=== PATIENT | male | born 1970 | race Caucasian/White ===

== ENCOUNTER 2019-11-03 13:51 | Inpatient (IN) ==
[2019-11-03 15:51] LABS: Hematocrit 26 % (42-52); Hemoglobin 8.6 g/dL (14.0-18.0); Mean Corpuscular HGB Conc 33 g/dL (31-36); Mean Corpuscular Hemoglobin 28 pg (27-31); Mean Corpuscular Volume 85 fL (80-94); Mean Platelet Volume 6.6 fL (7.4-10.4); Platelet Count 680 10^3/uL (150-450); Red Blood Count 3.12 10^6 /uL (4.18-5.48); Red Cell Distribution Width 15 % (10-15); White Blood Count 11.3 10^3/uL (3.5-10.8)
[2019-11-03 16:11] LABS: ABS Basophils 0.1 10^3/ul (0-0.2); ABS Eosinophils 0.3 10^3/ul (0-0.6); ABS Lymphocytes 2.1 10^3/ul (1.0-4.8); ABS Monocytes 1.2 10^3/ul (0-0.8); Eosinophil % 2.4 %; Lymphocyte % 18.9 %; Nucleated Red Blood Cells % 0.2
[2019-11-03 16:33] LABS: Polychromasia 1+
[2019-11-03 16:40] LABS: ALT 13 U/L (7-52); Albumin 2.4 g/dL (3.2-5.2); Albumin/Globulin Ratio 0.7 (1-3); Alkaline Phosphatase 88 U/L (34-104); BUN/Creatinine Ratio 15.6 (8-20); Blood Urea Nitrogen 10 mg/dL (6-24); C Reactive Protein 28.84 mg/L (<8.01); CO2 Carbon Dioxide 26 mmol/L (22-32); Calcium 8.4 mg/dL (8.6-10.3); Chloride 102 mmol/L (101-111); EGFR African American 160.2 (>60); EGFR Non-African American 132.4 (>60); Globulin 3.6 g/dL (2-4); Glucose 98 mg/dL (70-100); Sodium 135 mmol/L (135-145)
[2019-11-03] MEDS ORDERED: Iohexol 300 (CONTRAST) 10 ML SDV IV ONE (16:42)
[2019-11-03 16:48] LABS: Anion Gap 7 mmol/L (2-11)
[2019-11-03 17:13] LABS: AST Redraw 15 U/L (13-39); Potassium Redraw 4.2 mmol/L (3.5-5.0)
[2019-11-03] MEDS ORDERED: metroNIDAZOLE IV 500 MG/100ML 500 MG/100 ML BAG IVPB ONE (17:55)
[2019-11-03 19:57] LABS: Ferritin 162.5 ng/mL (24-336)
[2019-11-03 19:58] LABS: % Iron Saturation 10 % (15-55); Iron 21 ug/dL (50-212); Total Iron Binding Capacity 202 mcg/dL (250-450); Transferrin 144 mg/dL (203-362)
[2019-11-03] MEDS: NS 0.9% 1000 ml BAG 1,000 ML IV SCH (21:58)
[2019-11-04] MEDS: metroNIDAZOLE IV 500 MG/100ML 500 MG/100 ML BAG IVPB SCH ×2 (02:39→10:25)
[2019-11-04 07:06] LABS: Hematocrit 23 % (42-52); Hemoglobin 7.6 g/dL (14.0-18.0); Mean Corpuscular HGB Conc 33 g/dL (31-36); Mean Corpuscular Hemoglobin 28 pg (27-31); Mean Corpuscular Volume 84 fL (80-94); Red Blood Count 2.75 10^6 /uL (4.18-5.48); Red Cell Distribution Width 15 % (10-15); White Blood Count 12.1 10^3/uL (3.5-10.8)
[2019-11-04 07:07] LABS: BUN/Creatinine Ratio 8.8 (8-20); Calcium 7.8 mg/dL (8.6-10.3); EGFR African American 183.1 (>60); EGFR Non-African American 151.3 (>60); Potassium 4.2 mmol/L (3.5-5.0)
[2019-11-04 08:42] LABS: ABS Basophils 0.1 10^3/ul (0-0.2); ABS Eosinophils 0.4 10^3/ul (0-0.6); ABS Lymphocytes 2.7 10^3/ul (1.0-4.8); ABS Monocytes 1.7 10^3/ul (0-0.8); Eosinophil % 3.5 %; Lymphocyte % 22.5 %; Nucleated Red Blood Cells % 0.3; Platelet Count Platelets clumped. 10^3/uL (150-450)
[2019-11-04] MEDS: NS 0.9% 1000 ml BAG 1,000 ML IV SCH (09:09)
[2019-11-04] MEDS ORDERED: fentaNYL 100 mcg/2 ml 50 MCG/ML VIAL ONE (15:28)
[2019-11-04] MEDS ORDERED: Midazolam 10 mg/10 ml VIAL 1 mg/ml 10 ml VIAL (10 mg) ONE (15:28)
[2019-11-04] MEDS ORDERED: Iron Sucrose 200 MG in NS 0.9% 100 ml BAG 100 ML IVPB ONE (17:02)
[2019-11-04] MEDS: methylPREDNISolone SOD 40 mg/ml 1 ml VIAL IV SCH (18:26)
[2019-11-05] MEDS: NS 0.9% 1000 ml BAG 1,000 ML IV SCH ×2 (00:06→10:02)
[2019-11-05] MEDS: methylPREDNISolone SOD 40 mg/ml 1 ml VIAL IV SCH ×2 (00:51→10:11)
[2019-11-05 07:01] LABS: Hematocrit 24 % (42-52); Mean Corpuscular HGB Conc 33 g/dL (31-36); Mean Corpuscular Hemoglobin 28 pg (27-31); Mean Corpuscular Volume 85 fL (80-94); Platelet Count 659 10^3/uL (150-450); Red Blood Count 2.87 10^6 /uL (4.18-5.48); Red Cell Distribution Width 15 % (10-15); White Blood Count 8.6 10^3/uL (3.5-10.8)
[2019-11-05 07:26] LABS: BUN/Creatinine Ratio 9.1 (8-20); Calcium 8.1 mg/dL (8.6-10.3); EGFR African American 190.8 (>60); EGFR Non-African American 157.7 (>60); Potassium 4.7 mmol/L (3.5-5.0)
[2019-11-05 07:50] LABS: ABS Lymphocytes 1.1 10^3/ul (1.0-4.8); ABS Monocytes 0.2 10^3/ul (0-0.8); Eosinophil % 0.1 %; Lymphocyte % 12.7 %; Nucleated Red Blood Cells % 0.2
[2019-11-05 08:34] LABS: C Reactive Protein 31.77 mg/L (<8.01)
[2019-11-05 09:38] LABS: Hepatitis B Surface Antigen Nonreactive (Nonreactive)
[2019-11-05] MEDS ORDERED: methylPREDNISolone SOD 40 mg/ml 1 ml VIAL IV SCH (09:39)
[2019-11-05] MEDS: Enoxaparin 40 MG/0.4 ML SYR(*) SUBCUT SCH (10:03)
[2019-11-05 11:00] LABS: Erythrocyte Sed Rate 86 mm/Hr (0-19)
[2019-11-06 06:15] LABS: Hematocrit 22 % (42-52); Mean Corpuscular HGB Conc 33 g/dL (31-36); Mean Corpuscular Hemoglobin 28 pg (27-31); Mean Corpuscular Volume 86 fL (80-94); Mean Platelet Volume 7.2 fL (7.4-10.4); Platelet Count 546 10^3/uL (150-450); Red Blood Count 2.52 10^6 /uL (4.18-5.48); Red Cell Distribution Width 15 % (10-15); White Blood Count 12.8 10^3/uL (3.5-10.8)
[2019-11-06] MEDS: methylPREDNISolone SOD 40 mg/ml 1 ml VIAL IV SCH ×4 (06:15→23:17)
[2019-11-06 08:22] LABS: Polychromasia 2+
[2019-11-06 08:29] LABS: ABS Basophils 0.1 10^3/ul (0-0.2); ABS Eosinophils 0.1 10^3/ul (0-0.6)
[2019-11-06] MEDS: Enoxaparin 40 MG/0.4 ML SYR(*) SUBCUT SCH (10:01)
[2019-11-06 15:38] LABS: Hematocrit 23 % (42-52); Hemoglobin 7.7 g/dL (14.0-18.0)
[2019-11-06 18:50] LABS: QuantiferonTb Gold Plus Result Indeterminate (Negative)
[2019-11-07] MEDS: methylPREDNISolone SOD 40 mg/ml 1 ml VIAL IV SCH (05:54)
[2019-11-07] MEDS ORDERED: Iron Sucrose 200 MG in NS 0.9% 100 ml BAG 100 ML IVPB ONE (08:00)
[2019-11-07 08:19] VITALS: BP 101/59
[2019-11-07] MEDS ORDERED: MESALAMINE 500 MG PO SCH (09:00)
[2019-11-07] MEDS ORDERED: Mesalamine 1.2 gm TAB (NF) PO SCH (09:00)
[2019-11-07] MEDS ORDERED: Enoxaparin 40 MG/0.4 ML SYR(*) SUBCUT SCH (10:00)
== END 2019-11-07 13:40 | DRG 245 ==
LOC: ED 13:51 → MED 19:03
PROVIDERS: ADMIT Internal Medicine; ATTEND Internal Medicine